=== PATIENT | male | born 1945 | race Caucasian/White ===

== ENCOUNTER 2024-04-17 15:42 | Emergency (ER) | payer MEDICARE, MEDICAID ==
[2024-04-17] MEDS ORDERED: Lidocaine 1% 30 ML SDV ONE (15:46)
== END 2024-04-17 17:52 | disposition home or self-care (01) ==
LOC: VM.ED 15:42
DX: S01.81XA Laceration without foreign body of other part of head, initial encounter (principal); X50.9XXA Other and unspecified overexertion or strenuous movements or postures, initial encounter
CPT/HCPCS: 12011; 70450; 70486; 99283

== ENCOUNTER 2024-10-06 00:19 | Emergency (ER) | payer MEDICARE, MEDICAID | END 2024-10-06 00:50 | LOC: VM.ED 00:19 | DX: S01.01XA Laceration without foreign body of scalp, initial encounter (principal); W18.39XA Other fall on same level, initial encounter; Y93.01 Activity, walking, marching and hiking | CPT/HCPCS: 12001; 99283 ==